=== PATIENT | male | born 1985 | race Caucasian/White ===

== ENCOUNTER 2016-10-07 05:47 | Inpatient (IN) | payer OTHER ==
[2016-10-07] MEDS ORDERED: Sodium Chloride 0.9% 1,000 ML IV ONE ×2 (06:44→09:18)
[2016-10-07] MEDS ORDERED: Sodium Chloride 0.9% 1,000 ML ONE ×2 (06:52→09:21)
--- NOTE | 2016-10-07 06:56 | C.PDOC ---
History Of Present Illness <Audi Copeland R - Last Filed: 10/07/16 23:18> <TaliEkaterina A - Last Filed: 10/08/16 18:13> A 31 y/o M with a Hx of kidney stones to the left flank, c/o left flank pain and nausea that began last night. Denies fever, chills, vomiting, diarrhea, dysuria, hematuria, or any other complaints. (Audi Copeland) History Per: Patient History/Exam Limitations: no limitations Onset/Duration Of Symptoms: Days Current Symptoms Are (Timing): Still Present Quality Of Discomfort: "Pain" Severity: Mild Associated Symptoms: denies: New Weakness, New Numbness Recent travel outside of the [place]: No Additional History Per: Patient <Audi Copeland - Last Filed: 10/07/16 23:18> <TaliEkaterina A - Last Filed: 10/08/16 18:13> Time Seen by Provider: 10/07/16 06:53 Chief Complaint (Nursing): Back Pain Past Medical History Reviewed: Historical Data, Nursing Documentation, Vital Signs - Medical History PMH: Kidney Stones Family History: States: Unknown Family Hx - Social History Hx Tobacco Use: No Hx Alcohol Use: Yes Hx Substance Use: No - Immunization History Hx Tetanus Toxoid Vaccination: No Hx Influenza Vaccination: No Hx Pneumococcal Vaccination: No <Audi Copeland - Last Filed: 10/07/16 23:18> Review Of Systems Except As Marked, All Systems Reviewed And Found Negative. Constitutional: Negative for: Fever, Chills Gastrointestinal: Positive for: Nausea. Negative for: Vomiting, Diarrhea Genitourinary: Negative for: Dysuria, Hematuria Musculoskeletal: Positive for: Back Pain (Left flank pain) <Audi Copeland - Last Filed: 10/07/16 23:18> Physical Exam - Physical Exam Appears: Non-toxic, In Acute Distress (Acute distress due to pain) Skin: Warm, Dry Head: Atraumatic, Normacephalic Eye(s): bilateral: Normal Inspection Oral Mucosa: Moist Cardiovascular: Rhythm Regular Respiratory: Normal Breath Sounds, No Accessory Muscle Use, No Rales, No Rhonchi , No Wheezing Gastrointestinal/Abdominal: Soft, No Tenderness Back: CVA Tenderness (Mild left flank tenderness) Neurological/Psych: Oriented x3, Normal Speech, Normal Cognition <Audi Copeland - Last Filed: 10/07/16 23:18> ED Course And Treatment - Laboratory Results Result Diagrams: 10/07/16 06:54 10/07/16 06:54 O2 Sat by Pulse Oximetry: 99 (RA) Pulse Ox Interpretation: Normal <Audi Copeland Last Filed: 10/07/16 23:18> - Laboratory Results Result Diagrams: 10/07/16 06:54 10/07/16 06:54 - CT Scan/US ct abd/pelvis Other Rad Studies (CT/US): Read By Radiologist, Radiology Report Reviewed CT/US Interpretation: Accession No. : [id number]. Patient Name / ID : RADHA GARCIA / [id number]. Exam Date : 10/07/2016 08:14:30 ( Approved ) . Study Comment : Sex / Age : M / 31Y. Creator : Ponce Catherine MD. Dictator : Ponce Catherine MD. Emotional Support Teacher : District Plant Engineer : Ponce Catherine MD. Approver2 : Report Date : 10/07/2016 08:46:56. My Comment : . PROCEDURE: CT Abdomen and Pelvis without intravenous contrast. HISTORY: left flank pain r/o kidney stone. COMPARISON: None. TECHNIQUE: Multiple contiguous axial images were performed through the abdomen and pelvis without the use of intravenous contrast. Subsequently, sagittal and coronal reformatted images were obtained. Radiation dose: Total exam DLP = 228 mGy-cm. This CT exam was performed using one or more of the following dose reduction techniques: Automated exposure control, adjustment of the mA and/or kV according to patient size, and/or use of iterative reconstruction technique. FINDINGS: LOWER THORAX : Unremarkable. LIVER: Prominent liver with mild fatty infiltration. GALLBLADDER AND BILE DUCTS: Unremarkable. PANCREAS: Unremarkable. No gross lesion or ductal dilatation. SPLEEN: Unremarkable. ADRENALS: Unremarkable. No mass. KIDNEYS AND URETERS: Left Kidney: Moderate left hydroureteronephrosis with 5 millimeter obstructing calculus in the proximal left ureter. Additional 6 millimeter calculus seen in the midpole of the left kidney. Punctate 1 millimeter non calculus in the upper pole of the left kidney. Right kidney: Few punctate nonobstructive calculi in the right kidney for example in the lower pole there is a 4 millimeter calculus noted. VASCULATURE: Unremarkable. No aortic aneurysm. BOWEL: Unremarkable. No obstruction. No gross mural thickening. Fecal retention in the colon. APPENDIX : Unremarkable. Normal appendix. PERITONEUM: Unremarkable. No free fluid. No free air. LYMPH NODES: Unremarkable. No enlarged lymph nodes. BLADDER: Unremarkable. REPRODUCTIVE: Question high-riding right testicle in comparison to the left. Clinical correlation. BONES: Postsurgical changes in the left proximal femur. OTHER FINDINGS: Small fat containing umbilical hernia. IMPRESSION: Moderate left hydroureteronephrosis with 5 millimeter obstructing calculus in the proximal left ureter. Additional 6 millimeter calculus seen in the midpole of the left kidney. Punctate 1 millimeter non calculus in the upper pole of the left kidney. Additional findings as above. <Ekaterina Cesar - Last Filed: 10/08/16 18:13> Medical Decision Making <Audi Copeland - Last Filed: 10/07/16 23:18> <Ekaterina Cesar - Last Filed: 10/08/16 18:13> Medical Decision Making: Impression: A 31 y/o M with a Hx of kidney stones to the left flank, c/o left flank pain and nausea that began tonight. Plans: -Blood labs -Dilaudid -Zofran -Toradol -IV fluids -UA -Reassess (Audi Copeland) Disposition - Disposition Disposition Time: 07:00 <Audi Copeland - Last Filed: 10/07/16 23:18> - Disposition Disposition Time: 12:35 <Ekaterina Cesar - Last Filed: 10/08/16 18:13> - Disposition Disposition: HOSPITALIZED Condition: STABLE - Clinical Impression Clinical Impression: Renal colic on left side, Hydroureteronephrosis, Intractable pain - Scribe Statement The provider has reviewed the documentation as recorded by the Scribe <Audi Copeland - Last Filed: 10/07/16 23:18> <Ekaterina Cesar - Last Filed: 10/08/16 18:13> - Scribe Statement Bar vicente All medical record entries made by the Scribe were at my direction and personally dictated by me. I have reviewed the chart and agree that the record accurately reflects my personal performance of the history, physical exam, medical decision making, and the department course for this patient. I have also personally directed, reviewed, and agree with the discharge instructions and disposition. (Audi Copeland) Addendum <Audi Copeland - Last Filed: 10/07/16 23:18> <Ekaterina Cesar A - Last Filed: 10/08/16 18:13> Addendum: 10/07/16 12:[address] Andres richardson, agrees with admission to his service for intractable flank pain, kidney stone, hydroureterneprhosis (Ekaterina Cesar) Decision To Admit <Audi Copeland - Last Filed: 10/07/16 23:18> - Pt Status Changed To: Hospital Disposition Of: Inpatient - Admit Certification Admit to Inpatient:: After my assessment, the patient will require hospitalization for at least two midnights. This is because of the severity of symptoms shown, intensity of services needed, and/or the medical risk in this patient being treated as an outpatient. - InPatient: Physician Admission Certification:: see notes - . Bed Request Type: Regular Admitting Physician: Lane Richardson <Ekaternia Cesar - Last Filed: 10/08/16 18:13> - . Patient Diagnosis: Renal colic on left side, Hydroureteronephrosis, Intractable nausea and vomiting, Intractable pain
[2016-10-07 06:58] LABS: BASO % 0.4 % (0.0-2.0); EOS # 0.1 K/uL (0.0-0.7); EOS % 1.6 % (0.0-4.0); HEMOGLOBIN 14.3 g/dL (12.0-18.0); LYMPH # 1.9 K/uL (1.0-4.3); LYMPH % 21.5 % (20.0-40.0); MEAN CELL VOLUME 88.3 fL (80.0-94.0); MEAN CORPUSCULAR HEMOGLOBIN 30.3 pg (27.0-31.0); MEAN CORPUSCULAR HGB CONC 34.3 g/dL (33.0-37.0); MEAN PLATELET VOLUME 7.5 fL (7.2-11.7); MONO # 0.4 K/uL (0.0-0.8); MONO % 4.8 % (0.0-10.0); NEUT # 6.2 K/uL (1.8-7.0); NEUT % 71.7 % (50.0-75.0); NRBC % 0.1 % (0.0-2.0); RBC 4.73 Mil/uL (4.40-5.90); RED CELL DISTRIBUTION WIDTH 12.9 % (11.5-14.5); WHITE BLOOD COUNT 8.7 K/uL (4.8-10.8)
[2016-10-07 07:04] LABS: ALBUMIN 4.4 g/dL (3.5-5.0)
[2016-10-07 07:07] LABS: ALB/GLOB RATIO 1.5 (1.0-2.1); AST/SGOT 16 U/L (17-59); BLOOD UREA NITROGEN 11 mg/dL (9-20); GFR AFRICAN-AMERICAN > 60; GFR NON-AFRICAN AMERICAN > 60
[2016-10-07 07:08] LABS: ALT/SGPT 17 U/L (21-72); CALCIUM 8.8 mg/dl (8.6-10.4); LIPASE 109 U/L (23-300)
--- NOTE | 2016-10-07 08:48 | CT ---
PROCEDURE: CT Abdomen and Pelvis without intravenous contrast HISTORY: left flank pain r/o kidney stone COMPARISON: None. TECHNIQUE: Multiple contiguous axial images were performed through the abdomen and pelvis without the use of intravenous contrast. Subsequently, sagittal and coronal reformatted images were obtained. Radiation dose: Total exam DLP = 228 mGy-cm. This CT exam was performed using one or more of the following dose reduction techniques: Automated exposure control, adjustment of the mA and/or kV according to patient size, and/or use of iterative reconstruction technique. FINDINGS: LOWER THORAX: Unremarkable. LIVER: Prominent liver with mild fatty infiltration. GALLBLADDER AND BILE DUCTS: Unremarkable. PANCREAS: Unremarkable. No gross lesion or ductal dilatation. SPLEEN: Unremarkable. ADRENALS: Unremarkable. No mass. KIDNEYS AND URETERS: Left Kidney: Moderate left hydroureteronephrosis with 5 millimeter obstructing calculus in the proximal left ureter. Additional 6 millimeter calculus seen in the midpole of the left kidney. Punctate 1 millimeter non calculus in the upper pole of the left kidney. Right kidney: Few punctate nonobstructive calculi in the right kidney for example in the lower pole there is a 4 millimeter calculus noted. VASCULATURE: Unremarkable. No aortic aneurysm. BOWEL: Unremarkable. No obstruction. No gross mural thickening. Fecal retention in the colon. APPENDIX: Unremarkable. Normal appendix. PERITONEUM: Unremarkable. No free fluid. No free air. LYMPH NODES: Unremarkable. No enlarged lymph nodes. BLADDER: Unremarkable. REPRODUCTIVE: Question high-riding right testicle in comparison to the left. Clinical correlation. BONES: Postsurgical changes in the left proximal femur. OTHER FINDINGS: Small fat containing umbilical hernia. IMPRESSION: Moderate left hydroureteronephrosis with 5 millimeter obstructing calculus in the proximal left ureter. Additional 6 millimeter calculus seen in the midpole of the left kidney. Punctate 1 millimeter non calculus in the upper pole of the left kidney. Additional findings as above.
[2016-10-07] MEDS ORDERED: Morphine 4 MG/ML VIAL ONE (09:41)
[2016-10-07 11:29] LABS: URINE BILIRUBIN NEGATIVE (NEGATIVE); URINE BLOOD 3+ (NEGATIVE); URINE CLARITY Hazy (Clear); URINE COLOR Yellow (YELLOW); URINE GLUCOSE (UA) NORMAL (Normal); URINE LEUKOCYTE ESTERASE NEG Leu/uL (Negative); URINE NITRATE NEGATIVE (NEGATIVE); URINE PROTEIN 1+ mg/dL (NEGATIVE); URINE UROBILINOGEN NORMAL mg/dL (0.2-1.0)
[2016-10-07] MEDS: Dextrose 5%/0.45% NS 1,000 ML IV SCH (14:06)
[2016-10-07 17:57] VITALS: RESP 20
[2016-10-07] MEDS ORDERED: Morphine 4 MG/ML VIAL IVP PRN (20:15)
[2016-10-08] MEDS: Dextrose 5%/0.45% NS 1,000 ML IV SCH ×2 (00:45→09:45)
[2016-10-08 09:19] VITALS: BP 119/79; PULSE 80; TEMP 98.3; O2SAT 97
--- NOTE | 2016-10-08 10:58 | RAD ---
Abdomen two views History: Renal calculi. Comparison: CT scan dated 10/07/2016 Findings: Moderate fecal retention in the colon, limits evaluation for calculi. Two punctate radiopaque calcific foci suggestive for calculi project over the mid to lower pole of the left renal fossa and within the region of the left proximal ureter. Right renal fossa is obscured by overlying stool. Postsurgical changes of the left proximal femur. Impression: Moderate fecal retention in the colon, limits evaluation for calculi. Two punctate radiopaque calcific foci suggestive for calculi project over the mid to lower pole of the left renal fossa and within the region of the left proximal ureter. Right renal fossa is obscured by overlying stool. Postsurgical changes of the left proximal femur.
[2016-10-08] MEDS ORDERED: Pneumococcal 23-Valent Vaccine IM ONE (13:10)
== END 2016-10-08 13:56 | disposition home or self-care (01) | DRG 324 ==
LOC: C.ER 05:47 → C.9E 12:34 → C.3T 16:53
PROVIDERS: ADMIT Urology; ATTEND Urology
DX: N13.30 Unspecified hydronephrosis (principal); N20.2 Calculus of kidney with calculus of ureter